=== PATIENT | male | born 1985 | race Caucasian/White ===

== ENCOUNTER 2022-06-30 17:16 | Emergency (ER) | payer BC ==
[~2022-06-30] VITALS: Ht 193 cm; Wt 97.0 kg
--- NOTE | 2022-06-30 17:57 | ED General ---
General Chief Complaint: General Problems/Pain Stated Complaint: BACK PAIN AND SORE THROAT Nursing Triage Note: ARRIVED VIA AMB TO TRIAGE WITH COMPLAINTS OF BACK PAIN X8 YEARS BUT IN THE LAST TWO DAYS HAS HAD NUMBESS IN BILAT MIDDLE AND RING FINGERS. ALSO COMPLAINS OF A SEVERE THOAT ON THE LEFT SIDE. Source of Information: Patient Exam Limitations: No Limitations History of Present Illness Date Seen by Provider: Jun 30, 2022 Time Seen by Provider: 17:50 Initial Comments 36-year-old male presents to the ED with complaints of sore throat starting on with a temperature of 104.7. States on he was the right side of his throat that hurt. States that now the left side of his throat hurts. He denies any fever since . He is also complaining of upper back pain which has been chronic for 8 years. States that has become worse recently due to starting a new job. He reports bilateral third and fourth digits have become numb and tingly. He has not taken any pain medications. Reports past medical history of degenerative disc as well as flatback syndrome and a bone spur on either T3 or T4. He denies any chest pain, shortness of air, abdominal pain, nausea, vomiting, diarrhea. Denies ear pain or cough. Allergies and Home Medications Allergies Coded Allergies: No Known Drug Allergies (Unverified , 06/30/22) Patient Home Medication List Home Medication List Reviewed: Yes Review of Systems Review of Systems Constitutional: see HPI Past Vuazhmy-Etoqvz-Vnjymm Hx Patient Social History Tobacco Use?: No Use of E-Cig and/or Vaping dev: Yes Substance use?: Yes Substance type: Marijuana Alcohol Use?: Yes Alcohol Frequency: Rarely Physical Exam Vital Signs Vital Signs - First Documented 06/30/22 17:40 Temp 36.5 Pulse 63 Resp 16 B/P (MAP) 132/71 (91) Pulse Ox 99 O2 Delivery Room Air Capillary Refill : Less Than 3 Seconds Height, Weight, BMI Height: '" Weight: lbs. oz. kg; 26.00 BMI Method: General Appearance: No Apparent Distress, WD/WN HEENT: TM Abnormal (L) (Red), TM Abnormal (R) (Red) Neck: Non Tender, Supple Respiratory: Lungs Clear, Normal Breath Sounds, No Accessory Muscle Use, No Re spiratory Distress Cardiovascular: Regular Rate, Rhythm, No Murmur Back: Vertebral Tenderness (Mild vertebral tenderness in thoracic region), Other (Mild muscle tenderness in thoracic region) Extremity: Normal Inspection, Normal Range of Motion Neurologic/Psychiatric: Alert, Normal Mood/Affect Skin: Normal Color, Warm/Dry Progress/Results/Core Measures Suspected Sepsis SIRS Temperature: Pulse: 63 Respiratory Rate: 16 Blood Pressure 132 /71 Mean: 91 Results/Orders Lab Results Laboratory Tests Test 06/30/22 17:55 Range/Units Group A Streptococcus Screen POSITIVE H NEGATIVE My Orders Orders - OBI BERMEO APRN Rapid Strep A Screen (06/30/22 17:44) Ketorolac Injection (Toradol Injection) (06/30/22 18:00) Orphenadrine Inj (Ed Only) (Norflex Inje (06/30/22 18:00) Dexamethasone Injection (Decadron Injec (06/30/22 18:00) Penicillin G Benzathine Inject (Bicillin (06/30/22 18:30) Medications Given in ED Current Medications Medications Dose Ordered Sig/Valente Route Start Time Stop Time Status Last Admin Dose Admin Dexamethasone Sodium Phosphate 8 mg ONCE ONCE IM 06/30/22 18:00 06/30/22 18:01 DC 06/30/22 18:01 8 MG Ketorolac Tromethamine 30 mg ONCE ONCE IM 06/30/22 18:00 06/30/22 18:01 DC 06/30/22 18:02 30 MG Orphenadrine Citrate 60 mg ONCE ONCE IM 06/30/22 18:00 06/30/22 18:01 DC 06/30/22 18:01 60 MG Vital Signs/I&O 06/30/22 17:40 Temp 36.5 Pulse 63 Resp 16 B/P (MAP) 132/71 (91) Pulse Ox 99 O2 Delivery Room Air Capillary Refill : Less Than 3 Seconds Blood Pressure Mean: 91 Progress Note : Progress Note Patient seen and evaluated, resting comfortably in bed, no acute distress. Based on exam and symptoms, will test for strep. We will treat back pain with Toradol, Norflex, Decadron. Rapid strep positive. Discussed treatment options with patient. He would like to have a shot of penicillin now instead of a prescription. I will also provide a short prescription for Flexeril. Patient instructed to take ibuprofen as needed for pain. Discharge instructions and return precautions provided. Departure Impression Primary Impression: Back pain Additional Impression: Strep throat Disposition: 01 HOME, SELF-CARE Condition: Stable Departure-Patient Inst. Decision time for Depature: 18:39 Referrals: NO,LOCAL PHYSICIAN (PCP) Primary Care Physician Patient Instructions: Strep Throat (DC) Add. Discharge Instructions: Take Flexeril as needed for back pain, it may make you sleepy. Take 800 mg of ibuprofen every 8 hours with food for the next couple days to help with pain and inflammation. You may take it as needed after that. We have already treated you for strep throat. You should begin to feel better in the next couple of days. Make sure you drink plenty of water or noncaffeinated, low sugar beverages. Treat fevers with Tylenol up to 1000 mg every 8 hours. Follow-up with your primary care provider if you do not improve. Return for severe pain, throat tightening, tongue swelling, worsening of your back pain, inability to walk, urinary or bowel incontinence, or any other new, concerning, or worsening symptoms. All discharge instructions reviewed with patient and/or family. Voiced understanding. Scripts Cyclobenzaprine HCl (Cyclobenzaprine HCl) 10 Mg Tablet 10 MG PO TID, #21 TAB 0 Refills Prov: OBI BERMEO APRN 06/30/22 OBI BERMEO APRN Jun 30, 2022 17:57
[2022-06-30] MEDS ORDERED: KETOROLAC 60 MG/2 ML VIAL IM ONE (18:00)
[2022-06-30] MEDS ORDERED: ORPHENADRINE 60 MG/2 ML (NORFLEX) AMP (ED ONLY) IM ONE (18:00)
[2022-06-30] MEDS ORDERED: PEN G BENZ (BICILLIN LA) 1.2 M UN/2 ML SYR IM ONE (18:30)
[2022-06-30] MEDS ORDERED: CYCL10TA25 PO (18:41)
[2022-06-30 18:55] VITALS: BP 121/74
== END 2022-06-30 18:55 | disposition home or self-care (01) ==
LOC: ER 17:26
DX: J02.0 Streptococcal pharyngitis (principal); M54.6 Pain in thoracic spine; G89.29 Other chronic pain; F17.290 Nicotine dependence, other tobacco product, uncomplicated
CPT/HCPCS: 87430; 99283